=== PATIENT | female | born 1985 | race African-American/Black ===

== ENCOUNTER 2025-04-14 00:47 | Emergency (ER) | payer MEDICAID ==
[~2025-04-14] VITALS: Ht 170.2 cm; Wt 75.0 kg
[2025-04-14 00:55] VITALS: TEMP 36.9; O2SAT 99
[2025-04-14] MEDS ORDERED: CLONIDINE 0.2MG TABLET PO ONE (01:30)
[2025-04-14 01:37] LABS: BASOPHILS % 1.2 % (0.0-2.0); EOSINOPHILS % 3.0 % (0.0-5.0); HEMATOCRIT. 30.0 % (36.0-48.0); HEMOGLOBIN. 9.7 g/dL (12.0-16.0); LYMPHOCYTES % 43.4 % (20.0-50.0); MEAN PLATELET VOLUME 8.7 fl (7.4-10.4); MONOCYTES % 9.8 % (2.0-8.0); NEUTROPHILS % 42.6 % (40.0-76.0); PLATELET 382 x1000/uL (130-400); RED BLOOD CELL COUNT 3.52 mill/uL (4.2-5.4); RED CELL DISTRIBUTION WIDTH 16.5 % (11.6-14.6)
[2025-04-14 01:51] LABS: CREATININE 0.8 mg/dL (0.6-1.0)
[2025-04-14 01:52] LABS: ETHANOL BLOOD < 10 mg/dL (<10); TROPONIN I HIGH SENSITIVITY < 4 ng/L (3.0-34); UREA NITROGEN BLOOD 8 mg/dL (9-23)
[2025-04-14] MEDS: CLONIDINE 0.1MG TABLET PO NR (02:08)
[2025-04-14 03:07] LABS: *AMPHETAMINES SCREEN URINE NEGATIVE (NEGATIVE); *BARBITURATES SCREEN URINE NEGATIVE (NEGATIVE); *BENZODIAZEPINES SCREEN URINE NEGATIVE (NEGATIVE); *COCAINE SCREEN URINE NEGATIVE (NEGATIVE); CANNABINOID URINE SCREEN NEGATIVE (NEGATIVE); METHADONE URINE SCREEN NEGATIVE (NEGATIVE); OPIATES URINE SCREEN NEGATIVE (NEGATIVE); PHENCYCLIDINE URINE SCREEN NEGATIVE (NEGATIVE)
[2025-04-14 03:08] LABS: ECSTASY MDMA SCREEN URINE NEGATIVE (NEGATIVE)
[2025-04-14] MEDS ORDERED: AMOX1TAB16 MT (04:50)
[2025-04-14] MEDS ORDERED: AMLO5TAB88 MT (04:50)
[2025-04-14] MEDS: AMOXICILLIN/POTASSIUM CLAVULANATE 875/125MG TAB PO ONE (05:10)
[2025-04-14 05:17] VITALS: BP 155/102; PULSE 86; RESP 12; O2SAT 95
== END 2025-04-14 05:25 | disposition home or self-care (01) ==
LOC: ER 00:47
DX: I10 Essential (primary) hypertension (principal); J32.9 Chronic sinusitis, unspecified; R42 Dizziness and giddiness; R51.9 Headache, unspecified; Z79.899 Other long term (current) drug therapy
CPT/HCPCS: 36415; 71045; 80048; 80305; 80320; 84484; 85025; 93005; 99285; G0480

== ENCOUNTER 2025-07-05 20:33 | Emergency (ER) | payer MEDICAID ==
[~2025-07-05] VITALS: Ht 177.8 cm; Wt 70.0 kg
[~2025-07-05 20:33] MED LIST: AMLO5TAB88 MT; AMOX1TAB16 MT
[2025-07-05 20:36] VITALS: TEMP 36.8; O2SAT 100
[2025-07-05 21:00] VITALS: BP 172/114; PULSE 98; RESP 18; O2SAT 100
[2025-07-05] MEDS: SODIUM CHLORIDE 0.9% 1,000 ML IV ONE (21:00)
[2025-07-05] MEDS ORDERED: KETOROLAC 15MG/ML VIAL IV ONE (21:00)
[2025-07-05 21:19] LABS: BASOPHILS % 0.8 % (0.0-2.0); EOSINOPHILS % 4.4 % (0.0-5.0); HEMATOCRIT. 32.1 % (36.0-48.0); HEMOGLOBIN. 10.3 g/dL (12.0-16.0); LYMPHOCYTES % 52.8 % (20.0-50.0); MEAN PLATELET VOLUME 9.0 fl (7.4-10.4); MONOCYTES % 9.8 % (2.0-8.0); NEUTROPHILS % 32.2 % (40.0-76.0); PLATELET 346 x1000/uL (130-400); RED BLOOD CELL COUNT 3.67 mill/uL (4.2-5.4); RED CELL DISTRIBUTION WIDTH 22.3 % (11.6-14.6)
[2025-07-05 21:21] LABS: ADD RBC MORPHOLOGY YES
[2025-07-05] MEDS: METOCLOPRAMIDE HCL 10MG/2ML VIAL IV ONE (21:23)
[2025-07-05] MEDS: DIPHENHYDRAMINE 50MG/ML VIAL IV ONE (21:24)
[2025-07-05] MEDS: FAMOTIDINE 20MG/2ML VIAL IV ONE (21:24)
[2025-07-05 21:32] LABS: INR 0.9
[2025-07-05 21:33] LABS: CREATININE 0.7 mg/dL (0.6-1.0); PLATELET ESTIMATE NORMAL; UREA NITROGEN BLOOD 11 mg/dL (9-23)
[2025-07-05 21:34] LABS: TROPONIN I HIGH SENSITIVITY < 4 ng/L (3.0-34)
[2025-07-05 21:35] LABS: ASPARTATE AMINOTRANSFERASE 18 IU/L (<34); BILIRUBIN DIRECT < 0.1 mg/dL (<=3.0)
[2025-07-05 21:36] LABS: BILIRUBIN TOTAL 0.2 mg/dL (0.1-1.0); PROTEIN TOTAL 7.1 g/dL (6.0-8.3)
[2025-07-05 21:41] LABS: HCG SCREEN NEGATIVE
[2025-07-05 21:54] LABS: CLARITY URINE CLEAR (CLEAR); COLOR URINE YELLOW (YELLOW); GLUCOSE URINE NEGATIVE (NEGATIVE); KETONES URINE NEGATIVE (NEGATIVE); LEUKOCYTE ESTERASE URINE TRACE (NEGATIVE); NITRITE URINE NEGATIVE (NEGATIVE); OCCULT BLOOD URINE NEGATIVE (NEGATIVE); PH URINE 7.0 (4.5-8.0); PROTEIN URINE NEGATIVE (NEGATIVE); SPECIFIC GRAVITY URINE 1.011 (1.005-1.030); UROBILINOGEN URINE 0.2 E.U./dL (0.2-1.0)
[2025-07-05 22:07] LABS: *AMPHETAMINES SCREEN URINE NEGATIVE (NEGATIVE); *BARBITURATES SCREEN URINE NEGATIVE (NEGATIVE); *BENZODIAZEPINES SCREEN URINE NEGATIVE (NEGATIVE); *COCAINE SCREEN URINE NEGATIVE (NEGATIVE); CANNABINOID URINE SCREEN NEGATIVE (NEGATIVE); ECSTASY MDMA SCREEN URINE NEGATIVE (NEGATIVE); METHADONE URINE SCREEN NEGATIVE (NEGATIVE); OPIATES URINE SCREEN NEGATIVE (NEGATIVE); PHENCYCLIDINE URINE SCREEN NEGATIVE (NEGATIVE)
[2025-07-05 22:12] LABS: BACTERIA URINE TRACE; RBC URINE 0-2 /hpf (0-2); SQUAMOUS EPITHELIAL CELL URINE 1+ /lpf (RARE/1+); WBC URINE 0-2 /hpf (0-2)
== END 2025-07-05 22:54 | disposition home or self-care (01) ==
LOC: ER 20:33 → CMPBEDREQ 07-06 07:27
DX: R55 Syncope and collapse (principal); I10 Essential (primary) hypertension; K21.9 Gastro-esophageal reflux disease without esophagitis; R06.02 Shortness of breath; D64.9 Anemia, unspecified; Z79.899 Other long term (current) drug therapy
CPT/HCPCS: 80076; 80305; 80048; 81003; 84703; 83880; 83605; 83690; 83735; 85025; 85610; 85730; 86850; 86900; 86901; 84484; 36415; 71045; 93005; 96361; 96374; 96375; 99285; J1200; J1308; J2765; J7030; Z7610